=== PATIENT | female | born 1980 | race Caucasian/White ===

== ENCOUNTER 2019-04-25 08:20 | Day surgery (SDC) | payer OTHER ==
[~2019-04-25] VITALS: Ht 165.1 cm; Wt 126.1 kg
[~2019-04-25 08:20] MED LIST: CELEXA10 MG; CELEXA20 MG PO; CLARITIN10 MG PO; HAIR, SKIN & N1 EAC2 PO; HYDROCODONE-AP1 EAC6 PO; LATUDA20 MG; LATUDA40 MG PO; LISINOPRIL10 MG; MULTIVITAMINS PO; OMEPRAZOLE 20 M20 M1 PO; ORTHO TRI-CYCL1 EACH PO; PRILOSEC20 MG PO; PRILOSEC40 MG PO; TEGRETOL XR200 MG PO; TEGRETOL200 MG; VICTOZA0.6 MG/0.1 SUBQ; VITAMIN B-12500 MCG PO; ZESTRIL10 MG PO
[2019-04-25 09:10] VITALS: BP 118/66
[2019-04-25 09:17] LABS: URINE BILIRUBIN NEGATIVE (Negative); URINE BLOOD TRACE (Negative); URINE CLARITY CLEAR; URINE COLOR YELLOW; URINE GLUCOSE-RANDOM* NEGATIVE (Negative); URINE KETONES TRACE (Negative); URINE LEUKOCYTES NEGATIVE (Negative); URINE NITRITE NEGATIVE (Negative); URINE PROTEIN (DIPSTICK) NEGATIVE (Negative); URINE SPECIFIC GRAVITY >= 1.030 (1.005-1.035); URINE UROBILINOGEN 0.2 E.U./dl (0.2-1.0)
[2019-04-25 09:17] LABS: HEMATOCRIT 38.9 % (37.0-47.0); HEMOGLOBIN 12.3 gm/dL (12.0-15.0); MCH 25.1 pg (26.0-34.0); MCHC 31.7 g/dL (28.0-37.0); MCV 79.3 fL (80.0-100.0); RBC 4.9 mil/uL (4.20-5.00); RDW 15.6 % (10.5-14.5); WBC 6.6 thou/uL (4.0-11.0)
[2019-04-25 09:27] LABS: CALCIUM 9.1 mg/dL (8.5-10.1); CREATININE 0.8 mg/dL (0.6-1.0); POTASSIUM 3.9 mmol/L (3.5-5.1)
[2019-04-25 16:25] VITALS: BP 132/62
[2019-04-25 17:12] VITALS: BP 125/74
[2019-04-25 19:15] VITALS: BP 121/64
--- NOTE | 2019-04-25 20:30 | NUR ---
PATIENT ADMITTED FROM OR, TOTAL HYSTERECTOMY/BSO. PATIENT ARRIVED ON THE UNIT AT ABOUT 1545, REPORT FROM LOGAN/RN. C/O PAIN WITH ABDOMEN AREA, MORPHINE 4 MG IV GIVEN WITH GOOD RELIEF. HYDROCODONE 1 TABLET GIVEN AT END OF THE SHIFT. PATIENT HAS LEFT HAND IV WITH NS AT 125CC/HR. PATIENT HAS TRIVEDI CATHETER IN PLACE WITH YELLLOW URINE NOTED. ADMISSION COMPLETE. WILL CONTINUE TO MONITOR.
[2019-04-26 04:56] VITALS: BP 110/76
--- NOTE | 2019-04-26 05:03 | NUR ---
PT IS O/A X4.PT IS DAY 1 POST OP FOR TOTAL HYSTERECTOMY/BSO.PT HAS TRIVEDI AND D/C TODAY.PAIN CONTROLLED WITH MORPHINE.PT NEEDED HEATING PAD BUT PAD WAS NOT AVAILABLE.SCD IN PLACE AND ON ROOM AIR.CONTINUE POC TILL EOS
[2019-04-26 06:44] LABS: HEMATOCRIT 37.6 % (37.0-47.0); HEMOGLOBIN 11.7 gm/dL (12.0-15.0); MCH 24.9 pg (26.0-34.0); MCHC 31.1 g/dL (28.0-37.0); MCV 80.1 fL (80.0-100.0); RBC 4.69 mil/uL (4.20-5.00); RDW 15.6 % (10.5-14.5); WBC 11.7 thou/uL (4.0-11.0)
[2019-04-26 07:06] LABS: ALBUMIN 2.7 g/dL (3.4-5.0); CALCIUM 8.3 mg/dL (8.5-10.1); CREATININE 0.7 mg/dL (0.6-1.0); POTASSIUM 4.1 mmol/L (3.5-5.1); TOTAL BILIRUBIN 0.4 mg/dL (<0.1-1.0); TOTAL PROTEIN 6.4 g/dL (6.4-8.2)
[2019-04-26 07:33] VITALS: BP 125/80
--- NOTE | 2019-04-26 17:31 | NUR ---
PT A&OX4, IV NO LONGER INTACT INFILTRATED. PT DRINKING ADEQUATE AMT OF FLUIDS. REFUSES IV STICK. RECEIVED ORDERS TO DC IV FLUIDS, INCREASE PO PAIN MED DOSAGE. AMBULATES WITH STAND BY ASSIST AND GAIT BELT. ABD DRSG CHANGED TO UMBILICUS SM AMT OF SANG. DRAINAGE NOTED. LOWER PELVIS DRSG IS C/D/I WITH DERMABOUND. WILL CONT POC.
[2019-04-26 19:28] VITALS: BP 141/82
[2019-04-27 03:48] VITALS: BP 140/74
--- NOTE | 2019-04-27 04:07 | NUR ---
PT AMBULATING TO BATHROOM WITH STANDBY ASSIST AND IS TOLERATING FAIR. PT EXPERIENCING NAUSEA AND ONE EPISODE OF EMESIS--CONTACTED WHO GAVE ORDER FOR PO ZOFRAN--WILL CONTINUE TO MONITOR. LORTAB PROVIDING PAIN RELIEF. RESTING COMFORTABLY. NO NEEDS VOICED. CALL LIGHT WITHIN REACH. WILL CONTINUE TO PROVIDE FREQUENT OBSERVATION.
[2019-04-27 08:27] VITALS: BP 143/93
--- NOTE | 2019-04-27 13:16 | EKG ---
[address] [address] ELECTROCARDIOGRAM REPORT Name: ASHWINI BETTENCOURT Room #: 438-P [facility]#: [id number] Admission: 04/25/19 Attend Phys: Bobbi Juarez DO Discharge: Date of : 78 Report #: [id number] THIS REPORT FOR: //name// [facility] Test Date: 2019-04-25 Test Time: 08:43:41 Pat Name: ASHWINI BETTENCOURT Department: Room: 150 5 Gender: F Story Teller: SANA : 1980 Requested By: Bobbi Juarez Order Number: [id number] MD: Alessandro Barraza Measurements Intervals [place] Rate: 84 P: 50 MO: 158 QRS: 27 QRSD: 104 T: 29 QT: 380 QTc: 450 Interpretive Statements Sinus rhythm Normal tracing Compared to ECG 05/05/2002 12:25:49 No significant changes Electronically Signed On 04-27-2019 13:16:37 CDT by Alessandro Barraza [email or web address] <ELECTRONICALLY SIGNED> By: Alessandro Barraza MD, [facility] 04/27/19 1316 842 2 Alessandro Barraza MD, FACC /EPI
[2019-04-27 14:29] VITALS: BP 143/93
[2019-04-27 16:08] VITALS: BP 132/78
[2019-04-27] MEDS ORDERED: IBUPROFEN 200200 M1 PO (16:57)
[2019-04-27] MEDS ORDERED: HYDROCODON-ACE1 EAC7 PO (16:57)
[2019-04-27 17:24] VITALS: BP 143/93
[2019-04-27 17:56] VITALS: BP 143/93
--- NOTE | 2019-04-27 17:57 | NUR ---
DISCHARGE PAPERS GONE OVER WITH PATIENT. SIGNED AND COPY IN CHART. RX'S GIVEN TO PATIENT. NO IV ACSESS. ALL BELONGINGS PACKED AND SENT WITH PATIENT. DRESSING SUPPLIES SENT WITH PATIENT. PT W/O PAIN OR RESP DISTRESS AT DISCHARGE.
--- NOTE | 2019-04-29 17:06 | PATH ---
[facility] [address] [address] PATHOLOGY RPT PROCEDURE Name: RUTASHWINI TORRES Room #: DEP [facility] [place].R.#: [id number] Admission: 04/25/19 Date of : 78 Discharge: 04/27/19 Report #: [id number] Path Case #: [id number] [facility] Accession Number: [id number] . 01 Material submitted: . uterus - UTERUS, CERVIX, BILATERAL TUBES AND OVARIES . 01 Clinical history: . Dysfunctional uterine bleeding, dysmenorrhea, hot flashes, pelvic and perineal pain, endometriosis, flushing unbound medicine . 02 Diagnosis: Uterus, bilateral tubes and ovaries, hysterectomy with bilateral salpingo-oophorectomy: - Weakly proliferative appearing endometrium; negative for hyperplasia, atypia or malignancy. - Adenomyosis, mild. - Bilateral ovaries showing physiologic changes including follicular cysts as well as resolved corpus luteum. - Bilateral fallopian tubes showing congestion. . (IUV:mml; 04/29/2019) QLM 04/29/2019 1429 Local . 02 Electronically signed: . Dee Dee Graves MD, Pathologist NPI- [id number] . 01 Gross description: . The specimen is received in formalin labeled "Ashwini Bettencourt, uterus, cervix, bilateral tubes and ovaries". Received is a 66 g, 5.3 x 5.2 x 4.1 cm uterine corpus and detached adnexa, weighing 7 and 8 g. It is verified with the client that no cervix was submitted. The uterine serosa is pink-terrazas to pink-nieves, smooth and glistening in appearance. The uterine corpus cannot be oriented. The endometrial cavity is triangular measuring 4.5 cm in length by 2.6 cm in width. The endometrium is pale terrazas to pink-terrazas, glistening in appearance and measures 0.1 cm in thickness. Serial sectioning reveals a terrazas-pink, trabeculated myometrium measuring up to 2.2 cm in thickness with no grossly distinct nodules or lesions. . The 7 g adnexa consists of a fimbriated fallopian tube measuring 4.3 cm in length by up to 0.5 cm in diameter attached to a 2.5 x 1.5 x 1.5 cm ovary. Sectioning through the fallopian tube reveals a pinpoint to patent lumen and the fallopian tube appears grossly unremarkable. The ovarian surface is pale terrazas and smooth in appearance. Sectioning through the ovary reveals multiple cystic structures ranging in size from 0.2 to 0.5 cm filled with clear fluid. The remaining cut surfaces display pale terrazas, [address] [address] PATHOLOGY RPT PROCEDURE Name: ASHWINI BETTENCOURT Room #: DEP [facility] [place].R.#: [id number] Admission: 04/25/19 Date of : 78 Discharge: 04/27/19 Report #: [id number] Path Case #: [id number] normal ovarian stroma. . The 8 g adnexa consists of a fimbriated fallopian tube measuring 3.6 cm in length by up to 0.6 cm in diameter attached to a 2.8 x 1.7 x 1.7 cm ovary. Sectioning through the fallopian tube reveals a patent lumen and the fallopian tube appears grossly unremarkable. The ovarian surface is pale terrazas and smooth to slightly irregular in contour. Sectioning through the ovary reveals multiple cystic structures ranging in size from 0.2 to 0.4 cm filled with clear fluid. The remaining cut surfaces display pale terrazas, normal ovarian stroma. The specimen is submitted representatively as follows: . A1 endomyometrium A2 opposite endomyometrium A3 7 g adnexa A4 8 g adnexa. (CAA; 04/28/2019) QA/QA 04/28/2019 1329 Local . 02 Pathologist provided ICD-10: N85.9, N80.0, N83.11, N83.12, N83.01, N83.02 . 02 CPT . 007800 Specimen Comment: A courtesy copy of this report has been sent to Specimen Comment: [phone], . Specimen Comment: Report sent to / DR PARK Performed at: [address], [place] [id number] MD Satya Graves MD Phone: [phone] Performed at: [address] [id number] MD Dee Dee Graves MD Phone: [phone]
--- NOTE | 2019-05-08 13:32 | O ---
[facility] [place] [address] OPERATIVE REPORT Name: ASHWINI BETTENCOURT Room #: DEP [facility].#: [id number] Admission: 04/25/19 Attend Phys: Bobbi Juarez DO Discharge: 04/27/19 Date of : 78 Report #: [id number] THIS REPORT FOR: //name// CC: CATHY Juarez Physician staff DATE OF SERVICE: 04/25/2019 PREOPERATIVE DIAGNOSES: 1. Dysfunctional uterine bleeding. 2. Menorrhagia. 3. History of endometriosis. 4. Pelvic pain. POSTOPERATIVE DIAGNOSES: 1. Dysfunctional uterine bleeding. 2. Menorrhagia. 3. History of endometriosis. 4. Pelvic pain. OPERATIVE PROCEDURE: Laparoscopy converted to abdominal supracervical hysterectomy with bilateral salpingo-oophorectomy. SURGEON: Dr. Bobbi Juarez. ANESTHESIA: General. INTRAVENOUS FLUIDS: 1500 mL. URINE OUTPUT: 120 mL. ESTIMATED BLOOD LOSS: 200 mL. COMPLICATIONS: Due to body habitus. PATHOLOGY: Uterus, bilateral fallopian tubes, and ovaries. DESCRIPTION OF PROCEDURE: The patient was taken to the operating room where general anesthesia was administered and found to be adequate. She was then prepped and draped in normal sterile fashion in dorsal lithotomy position. A Ybarra catheter was placed in the patient's bladder. The bladder was drained of urine. A weighted speculum was placed in the patient's vagina and the anterior lip of the cervix was identified and grasped with a single-tooth tenaculum. The uterus was then gently sounded to approximately 9 cm. The VCare uterine manipulator was then inserted through the cervix, gently advanced into the [facility] [address] [place] [address] OPERATIVE REPORT Name: RUTASHWINI TORRES Room #: DEP [facility] [place]#: [id number] Admission: 04/25/19 Attend Phys: Bobbi Juarez DO Discharge: 04/27/19 Date of : 78 Report #: [id number] uterus, and the balloon was fully inflated. The tenaculum was removed from the patient's cervix and the VCare cup was fashioned over the cervix and placed. The weighted speculum was removed from the patient's vagina. Sterile gloves were changed and attention was then turned to the patient's abdomen. A 5-mm infraumbilical incision was made with a scalpel. A 5-mm trocar was placed through this incision under direct visualization of laparoscope. No insertional trauma was identified. This was accomplished after the pneumoperitoneum was allowed to accumulate using carbon dioxide gas. The patient was then placed in Trendelenburg position. A survey of the patient's abdomen revealed a normal appearing uterus, fallopian tubes, and ovaries bilaterally. A second incision was then made in the patient's right lower quadrant, a 5-mm trocar was placed through this incision under direct visualization of the laparoscope. Again, no insertional trauma was identified. This exact same procedure was performed in the patient's left lower quadrant. Once all trocars were placed, the patient's right fallopian tube was grasped and the fallopian tube and ovary were retracted medially. The Sonicision was then used to transect the infundibulopelvic ligament followed by the round ligament down into through the broad ligament. Excellent hemostasis was noted of the pedicle. The vesicouterine peritoneum was identified. Then Sonicision was used to transect across the anterior carlee. Attention was then turned to the patient's left pelvis where the fallopian tube and ovary were retracted medially. The left infundibulopelvic ligament followed by the round ligament and broad ligament were transected with the Sonicision device. Again, excellent hemostasis was noted at the pedicle. The vesicouterine peritoneum was identified, tented upward, and transected using the Sonicision device. The laparoscopic scissors were then used in an attempt to dissect the vesicouterine peritoneum off the anterior aspect of the cervix. This was unfortunately unable to be accomplished after several attempts. The VCare cup was not able to be felt safely to perform a colpotomy, which caused an inability to transect the uterine arteries or cardinal ligament complexes. Therefore, at this time, it was decided to convert to an open hysterectomy. All trocars were removed from the patient's abdomen. The patient remained in slight Trendelenburg position. Once instrument counts were completed, a Pfannenstiel skin incision was made in the patient's abdomen approximately 2 cm above the symphysis pubis. This was carried through to the underlying layer of fascia. The fascia was nicked in the midline and the incision was carried laterally with Romo scissors. The superior aspect of the fascial incision was grasped with Braydon clamps, elevated, and the underlying rectus muscle dissected off bluntly as well as with Romo scissors. Attention was then turned to the inferior aspect of this incision, which in a similar fashion, was grasped with Braydon clamps, elevated and the underlying rectus muscle dissected off bluntly as well as with Romo scissors. The rectus muscles were in the midline. The peritoneum was identified, tented upward with curved stats and entered sharply with Metzenbaum scissors. This incision was then extended superiorly and inferiorly. The uterus was then visualized and grasped with a Juma tenaculum. The bowel was packed cephalad and a Stuart retractor was placed in the [facility] [address] [place] [address] OPERATIVE REPORT Name: RUTASHWINI TORRES Room #: DEP [facility]..#: [id number] Admission: 04/25/19 Attend Phys: Bobbi Juarez DO Discharge: 04/27/19 Date of : 78 Report #: [id number] patient's abdomen. Due to the amount of preperitoneal bladder adipose tissue, we were unable to retract the bladder adequately even with a Stuart retractor due to the patient's body habitus as well as pelvic shape, we were unable to effectively and safely dissect the vesicouterine peritoneum from the anterior aspect of the cervix. The uterine arteries bilaterally were clamped with straight chiquis clamps, transected with romo scissors and tied. Excellent hemostasis was noted. It was then decided that a supracervical hysterectomy would be performed using heavy romo scissors as well as Bovie cautery. The uterus was amputated from the superior aspect of the cervix. Cautery was then used to ablate the top portion of the cervix as well as centrally in the cervix to ablate any endometrial tissue that could trail into the cervix but that does trail into the cervix, 2-0 Vicryl was then used to close the top of the cervix. Excellent hemostasis was noted. The pelvis was copiously irrigated. Hemostasis was noted of all pedicles as well as the cervix. All lap sponges and instruments were removed from the patient's pelvis including the [place] retractor after irrigant was removed. The muscle and peritoneum were then reapproximated using 2-0 Vicryl. Muscles were noted to be hemostatic. The fascia was then closed using 0 PDS in a running fashion. The subcutaneous tissue was then reapproximated using 3-0 plain and the skin was closed with a subcuticular stitch using 4-0 Monocryl. All instruments were removed from the patient's vaginal area after the laparoscopic ports were closed with 4-0 Monocryl. The cervix was also visualized and noted to be hemostatic. The patient tolerated the procedure well. Sponge, lap, and needle counts as well as instrument counts were reported as correct and the patient was taken to the recovery room in stable condition. <ELECTRONICALLY SIGNED> By: Bobbi Juarez DO 05/08/19 1332 1457 1925 Bobbi Juarez DO /nt
== END 2019-04-27 18:01 | disposition home or self-care (01) ==
LOC: OR 08:20 → TBA 08:27 → OR 09:13 → 4S 16:01 → OR 16:03
PROVIDERS: Obstetrics & Gynecology
DX: R10.2 Pelvic and perineal pain (principal); N92.0 Excessive and frequent menstruation with regular cycle; N93.8 Other specified abnormal uterine and vaginal bleeding; Z53.31 Laparoscopic surgical procedure converted to open procedure; I10 Essential (primary) hypertension; F32.9 Major depressive disorder, single episode, unspecified; K21.9 Gastro-esophageal reflux disease without esophagitis; Z90.49 Acquired absence of other specified parts of digestive tract; Z87.891 Personal history of nicotine dependence; Z87.42 Personal history of other diseases of the female genital tract; Z98.890 Other specified postprocedural states; Z79.899 Other long term (current) drug therapy; Z90.711 Acquired absence of uterus with remaining cervical stump
CPT/HCPCS: 50010; 50101; 50249; 50386; 50400; 50455; 50555; 50685; 50962; 51489; 51687; 51751; 52265; 53307; 54118; 56524; 56525; 56526; 56719; 62110; 62900; 70005